=== PATIENT | female | born 1960 | race Caucasian/White ===

== ENCOUNTER 2024-10-22 08:51 | Outpatient (CLI) | payer BC, SELFPAY ==
--- NOTE | ~2024-10-22 | XR_ITS ---
Lumbar spine series Indication: Lumbar radiculopathy Comparison: None Technique: 3 views lumbar spine Findings: 5 nonrib-bearing lumbar-type vertebral bodies. Mild scoliosis. No acute fracture. Grade 1 anterolisthesis of L4 on 5, L5 on S1. Disc spaces maintained. Mild degenerative changes. SI joints congruent. Sacrum intact. IMPRESSION: 1. No acute abnormality. 2. Findings as above. Reviewed, dictated and finalized at location R.
== END 2024-10-22 08:52 | disposition home or self-care (01) ==
LOC: MICIMG 08:58
PROVIDERS: PCP Internal Medicine; Visit Provider Nurse Practitioner Family
DX: M54.16 Radiculopathy, lumbar region (principal)
CPT/HCPCS: 72100

== ENCOUNTER 2024-11-20 09:10 | Outpatient (CLI) | payer BC, SELFPAY ==
--- NOTE | ~2024-11-20 | MR_ITS ---
EXAMINATION: MR lumbar spine wo con DATE: 11/20/2024 09:59 INDICATION: Lumbar radiculopathy. TECHNIQUE: Magnetic resonance imaging (MRI) of the lumbar spine was performed without intravenous contrast. Sequences included sagittal T2-weighted FSE, sagittal T2-weighted FS FSE, sagittal T1-weighted FSE, and axial T2-weighted FSE. COMPARISON: Lumbar spine radiographs 10/22/2024 FINDINGS: There is 10 degrees dextroscoliosis of lumbar spine. Vertebral body heights are normal. There is mildly decreased disc height at L3-L4 and L4-L5. The distal spinal cord signal intensity is normal. The conus medullaris is at L1-L2. The following disc levels are specifically discussed: L1-L2: The disc is bulging. There is moderate right and mild left facet joint osteoarthritis. There is mild right neural foraminal stenosis. There is mild central canal stenosis. L2-L3: The disc is bulging. There is moderate bilateral facet joint osteoarthritis. There is mild left neural foraminal stenosis. There is no central canal stenosis. L3-L4: The disc is bulging. There is severe bilateral facet joint osteoarthritis. There is mild bilateral neural foraminal stenosis. There is mild central canal stenosis. L4-L5: The disc is bulging and has an annular fissure. There is severe bilateral facet joint osteoarthritis. There is mild bilateral neural foraminal stenosis. There is no central canal stenosis. L5-S1: The disc does not extend beyond the endplate margin. There is severe bilateral facet joint osteoarthritis. There is mild bilateral neural foraminal stenosis. There is no central canal stenosis. IMPRESSION: 1. Mild lumbar spondylosis. 2. Lumbar dextroscoliosis. Reviewed, dictated and finalized at location E.
== END 2024-11-20 09:11 | disposition home or self-care (01) ==
LOC: MICIMG 09:10
PROVIDERS: PCP Internal Medicine; Visit Provider Nurse Practitioner Family
DX: M47.26 Other spondylosis with radiculopathy, lumbar region (principal)
CPT/HCPCS: 72148